=== PATIENT | male | born 1950 | race Caucasian/White ===

== ENCOUNTER → 2017-10-21 | Outpatient (CLI) | payer MEDICARE, BC ==
[2017-10-21 10:45] LABS: Blood Urea Nitrogen 18 mg/dL (9-20)
== END | disposition home or self-care (01) ==
LOC: LABWHC1 09:51
PROVIDERS: ATTEND Otolaryngology
DX: Z01.812 Encounter for preprocedural laboratory examination (principal); H93.12 Tinnitus, left ear; H91.92 Unspecified hearing loss, left ear; H92.02 Otalgia, left ear
CPT/HCPCS: 36415; 82565; 84520

== ENCOUNTER → 2017-10-22 | Outpatient (CLI) | payer MEDICARE, BC ==
--- NOTE | 2017-10-22 09:12 | MR ---
EXAMINATION TYPE: MR iac wo/w con DATE OF EXAM: 10/22/2017 COMPARISON: None HISTORY: Tinnitus, Hearing loss TECHNIQUE: Multiplanar, multisequence images of the brain and brainstem, small [id number] and high resolution images of the internal auditory canals is performed without and with IV contrast, utilizing 10 mL in travenous Gadavist . FINDINGS: Diffusion weighted images demonstrate no evidence of a recent infarct or other diffusion ab normality. There is no extra-axial fluid collection or significant white matter signal abnormality. The ventricular system and cisternal spaces are normal in size and appearance. The brain volume is age appropriate. Midline structures demonstrate normal morphology. The craniocervical junction appears within normal limits. Post contrast images demonstrate no abnormal enhancement. The cerebellopontine angles show n o evident mass. Internal auditory canals are normal. Cochlea and semicircular canals show symmetric a ppearance. The dural venous sinuses appear patent. The visualized sinuses are remarkable for inflamma tory change in the ethmoid air cells and frontal sinus, mucoperiosteal thickening also noted in the m axillary sinuses and the globes are intact. IMPRESSION: Normal internal auditory canals. Sinus disease.
== END | disposition home or self-care (01) ==
LOC: RADMRIMAIN 08:01
PROVIDERS: ATTEND Otolaryngology
DX: H93.12 Tinnitus, left ear (principal); H91.92 Unspecified hearing loss, left ear
CPT/HCPCS: 70553; A9581

== ENCOUNTER → 2018-02-11 | Outpatient (CLI) | payer MEDICARE, BC ==
[2018-02-11 12:46] LABS: Basophils # (A) 0.1 k/uL (0-0.2); Basophils % (A) 1 %; Eosinophils # (A) 0.3 k/uL (0-0.7); Eosinophils % (A) 4 %; HCT 42.7 % (39.0-53.0); HGB 14.6 gm/dL (13.0-17.5); Lymphocytes # (A) 1.7 k/uL (1.0-4.8); Lymphocytes % (A) 26 %; MCH 30.8 pg (25.0-35.0); MCHC 34.2 g/dL (31.0-37.0); MCV 90.2 fL (80.0-100.0); Mean Platelet Volume 7.3; Monocytes # (A) 0.4 k/uL (0-1.0); Monocytes % (A) 7 %; Neutrophils # (A) 3.9 k/uL (1.3-7.7); Neutrophils % (A) 60 %; Platelet Count 142 k/uL (150-450); RBC 4.74 m/uL (4.30-5.90); RDW 13.3 % (11.5-15.5); WBC 6.4 k/uL (3.8-10.6)
[2018-02-11 14:53] LABS: Erythrocyte Sedimentation Rate 15 mm/hr (0-15)
== END ==
LOC: LABWHC1 12:01
PROVIDERS: ATTEND Orthopaedic Surgery
DX: M76.11 Psoas tendinitis, right hip (principal); Z96.641 Presence of right artificial hip joint
CPT/HCPCS: 36415; 85025; 85652; 86140

== ENCOUNTER → 2018-04-01 | Outpatient (CLI) | payer MEDICARE, BC ==
--- NOTE | 2018-04-01 15:17 | NM ---
EXAMINATION TYPE: NM bone/joint limited DATE OF EXAM: 04/01/2018 COMPARISON: NONE HISTORY: Right hip pain. 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 TECHNIQUE: After the intravenous administration of 23.0 mCi Tc 99m MDP. Images acquired 3.5 hours p ost injection. Multiple views of the hips and pelvis are submitted. FINDINGS: There is slight right acetabular and greater trochanter periprosthetic asymmetric radiotrac er uptake. Symmetric grade tracer uptake is seen at the sacroiliac joints, likely from degenerative c hange and mild uptake within the left hip is also likely on the basis of arthropathy. Physiologic exc retion is seen within the urinary bladder. IMPRESSION: Mild periprosthetic uptake within the right acetabulum and greater trochanter that can be seen in arthroplasty loosening. Correlate with radiographs and physical examination. Mild uptake wit hin the left hip is likely related to arthropathy as is symmetric uptake in the sacroiliac joints.
== END | disposition home or self-care (01) ==
LOC: RADNMMAIN 09:53
PROVIDERS: ATTEND Orthopaedic Surgery
DX: R94.8 Abnormal results of function studies of other organs and systems (principal); M76.11 Psoas tendinitis, right hip; I10 Essential (primary) hypertension; E03.9 Hypothyroidism, unspecified; Z09 Encounter for follow-up examination after completed treatment for conditions other than malignant neoplasm; Z96.641 Presence of right artificial hip joint; Z87.891 Personal history of nicotine dependence
CPT/HCPCS: 78300; A9503